=== PATIENT | male | born 2000 | race American Indian/Alaskan Native ===

== ENCOUNTER 2024-01-30 18:12 | Emergency (ER) | payer MEDICAID ==
[~2024-01-30] VITALS: Ht 185.4 cm; Wt 74.1 kg
[2024-01-30 18:21] VITALS: BP 118/73; PULSE 88; RESP 16; TEMP 98.6; O2SAT 100
[2024-01-30] MEDS ORDERED: LIDO700A32 TD (20:52)
[2024-01-30] MEDS ORDERED: IBUP-1984 PO (20:52)
[2024-01-30] MEDS: ibuprofen tablet 400 MG TABLET PO STA (21:04)
[2024-01-30] MEDS: LIDOcaine 5% patch TP ONE (21:05)
== END 2024-01-30 21:12 | disposition home or self-care (01) ==
LOC: ER 18:13
DX: S80.12XA Contusion of left lower leg, initial encounter (principal); W50.0XXA Accidental hit or strike by another person, initial encounter; Y93.89 Activity, other specified; Y92.89 Other specified places as the place of occurrence of the external cause; Y99.8 Other external cause status
CPT/HCPCS: 73590; 99283

== ENCOUNTER 2024-03-19 12:40 | Emergency (ER) | payer MEDICAID ==
[~2024-03-19] VITALS: Ht 188 cm; Wt 73.6 kg
[~2024-03-19 12:40] MED LIST: LIDO700A32 TD
[2024-03-19 15:02] VITALS: BP 126/63; PULSE 68; RESP 16; TEMP 98; O2SAT 98
== END 2024-03-19 14:29 | disposition home or self-care (01) ==
LOC: ER 12:40
DX: S62.316A Displaced fracture of base of fifth metacarpal bone, right hand, initial encounter for closed fracture (principal); Z79.899 Other long term (current) drug therapy; W21.89XA Striking against or struck by other sports equipment, initial encounter; Y93.89 Activity, other specified; Y92.89 Other specified places as the place of occurrence of the external cause; Y99.8 Other external cause status
CPT/HCPCS: 29125; 73130; 73590; 99284